=== PATIENT | male | born 1985 | race Two or more races ===

== ENCOUNTER → 2022-01-04 | Emergency (ER) | payer MEDICAID ==
[~2022-01-04] VITALS: Ht 175.3 cm; Wt 86.2 kg
[2022-01-04 18:09] VITALS: BP 118/80
== END | disposition left against medical advice (07) ==
LOC: ER 17:46
DX: S51.051A Open bite, right elbow, initial encounter (principal); Z53.21 Procedure and treatment not carried out due to patient leaving prior to being seen by health care provider; W57.XXXA Bitten or stung by nonvenomous insect and other nonvenomous arthropods, initial encounter; Y93.89 Activity, other specified; Y92.89 Other specified places as the place of occurrence of the external cause; Y99.8 Other external cause status

== ENCOUNTER 2022-01-09 22:11 | Emergency (ER) | payer MEDICAID ==
[~2022-01-09] VITALS: Ht 175.3 cm; Wt 86.6 kg
[2022-01-10 01:55] VITALS: BP 140/94
[2022-01-10] MEDS ORDERED: IBUPROFEN 600 MG TAB PO ONE (02:15)
== END 2022-01-10 02:56 | disposition left against medical advice (07) ==
LOC: ER 22:11
DX: L02.413 Cutaneous abscess of right upper limb (principal); Z53.21 Procedure and treatment not carried out due to patient leaving prior to being seen by health care provider